=== PATIENT | female | born 1995 | race American Indian/Alaskan Native ===

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

== ENCOUNTER 2017-02-13 15:41 | Emergency (ER) | payer OTHER ==
[2017-02-13 16:27] LABS: Basophils % (Auto) 0.5 % (0.0-1.8); Eosinophils % (Auto) 1.1 % (0.0-4.3); Hematocrit 34.2 % (30.3-42.9); Hemoglobin 11.1 gm/dl (10.1-14.3); Mean Corpuscular HGB Conc 33 % (30-34); Mean Corpuscular Hemoglobin 28 pg (28-32); Mean Corpuscular Volume 87 fl (79-97); Platelet Count 257 K/mm3 (140-440); Red Blood Count 3.93 M/mm3 (3.65-5.03); Red Cell Distribution Width 14.4 % (13.2-15.2); White Blood Count 4.2 K/mm3 (4.5-11.0)
[2017-02-13] MEDS ORDERED: ZOFRAN ODT PO ONE (21:17)
[2017-02-13] MEDS ORDERED: TORADOL IM ONE (21:17)
[2017-02-13] MEDS ORDERED: NORCO 5/325 PO ONE (21:17)
--- NOTE | 2017-02-13 22:11 | Emergency Department Report ---
ED Female HPI - General Chief complaint: Vaginal Bleeding Stated complaint: BLEEDING HEAVY X 1 DAY Time Seen by Provider: 02/13/17 21:10 Source: patient Mode of arrival: Ambulatory Limitations: No Limitations - History of Present Illness Initial comments: 21-year-old female with a past medical history of anxiety presents to the hospital complaining of persistent bleeding for the last 2 days. Patient started her menstrual cycle his 17th visit is the right time ever, bleeding is heavier than normal. Patient using 10 pads in a 24-hour period patient complains of 4/testing. Suprapubic abdominal pressure radiating to the back that is worse with palpation. She is taking ibuprofen with minimal relief. Dysuria 2 days reported without fever. Patient is sexually active with one partner and intermittent condom use. Patient has appointment with her [facility] doctor on the to initiate control. - Related Data Previous Rx's Medication Instructions Recorded Last Taken Type Ibuprofen [Motrin 800 MG tab] 800 mg PO Q8HR PRN #20 tablet 12/18/16 02/11/17 Rx Naproxen [Naprosyn TAB] 500 mg PO BID #30 tablet 02/13/17 Unknown Rx medroxyPROGESTERone ACETATE 10 mg PO QDAY #10 tablet 02/13/17 Unknown Rx [Provera] traMADol [Ultram 50 MG tab] 50 mg PO Q6HR PRN #20 tablet 02/13/17 Unknown Rx Allergies Allergy/AdvReac Type Severity Reaction Status Date / Time amoxicillin Allergy Hives Verified 12/18/16 13:15 cephalexin Allergy Rash Verified 05/14/16 15:59 ED Review of Systems ROS: Stated complaint: BLEEDING HEAVY X 1 DAY Other details as noted in HPI Comment: All other systems reviewed and negative Other: Constitutional: No fevers chills Eyes: No eye pain visual changes ENT: No ear pain or throat pain Neck: Denies pain Respiratory: Denies cough wheezing shortness of breath Cardiovascular: Denies chest pain, palpitations, syncope GI: as per hpi : as per hpi Musculoskeletal: Denies back pain, joint swelling Skin: Denies rash, lesions, erythema Neurologic: Denies headache, numbness, weakness Psychiatric: Denies suicidal ideation, hallucinations ED Past Medical Hx - Past Medical History Previous Medical History?: Yes Hx Psychiatric Treatment: Yes (Anxiety) Additional medical history: anxiety - Surgical History Past Surgical History?: No - Social History Smoking Status: Never Smoker Substance Use Type: Non Opiate Pain - Medications Home Medications: Home Medications Medication Instructions Recorded Confirmed Last Taken Type Ibuprofen [Motrin 800 MG tab] 800 mg PO Q8HR PRN #20 tablet 12/18/16 02/13/17 Rx Naproxen [Naprosyn TAB] 500 mg PO BID #30 tablet 02/13/17 Unknown Rx medroxyPROGESTERone ACETATE 10 mg PO QDAY #10 tablet 02/13/17 Unknown Rx [Provera] traMADol [Ultram 50 MG tab] 50 mg PO Q6HR PRN #20 tablet 02/13/17 Unknown Rx ED Physical Exam - General Limitations: No Limitations - Other Other exam information: General: No limitations, patient is alert in no acute distress Head exam: Atraumatic, normocephalic Eyes exam: Normal appearance, pupils equal reactive to light, extraocular movements intact ENT: Moist mucous membrane, normal oropharynx Neck exam: Normal inspection, full range of motion, no meningismus nontender Respiratory exam: Clear to auscultation bilateral, no wheezes, rales, crackles Cardiovascular: Normal rate and rhythm, normal heart sounds Abdomen: Soft, nondistended, superpubic tenderness, with normal bowel sounds, no rebound, or guarding : Matter blood in the vault significant hemorrhage. No CMT or adnexal tenderness Extremity: Full range of motion normal inspection no deformity Back: Normal Inspection, full range of motion, no tenderness Neurologic: Alert, oriented x3, cranial nerves intact, no motor or sensory deficit Psychiatric: normal affect, normal mood Skin: Warm, dry, intactm ED Course Vital Signs 02/13/17 15:52 Temperature 98.4 F Pulse Rate 84 Respiratory 20 Rate Blood Pressure 137/89 O2 Sat by Pulse 100 Oximetry - Reevaluation(s) Reevaluation #1: 02/13/17 22:12 Patient treated with Toradol and [place] ED Medical Decision Making - Lab Data Result diagrams: 02/13/17 16:10 Lab Results 02/13/17 02/13/17 02/13/17 Range/Units 16:10 16:10 16:10 WBC 4.2 L (4.5-11.0) K/mm3 RBC 3.93 (3.65-5.03) M/mm3 Hgb 11.1 (10.1-14.3) gm/dl Hct 34.2 (30.3-42.9) % MCV 87 (79-97) fl MCH 28 (28-32) pg MCHC 33 (30-34) % RDW 14.4 (13.2-15.2) % Plt Count 257 (140-440) K/mm3 Lymph % (Auto) 32.1 (13.4-35.0) % [place] % (Auto) 7.2 (0.0-7.3) % Eos % (Auto) 1.1 (0.0-4.3) % Baso % (Auto) 0.5 (0.0-1.8) % Lymph # 1.4 (1.2-5.4) K/mm3 [place] # 0.3 (0.0-0.8) K/mm3 Eos # 0.0 (0.0-0.4) K/mm3 Baso # 0.0 (0.0-0.1) K/mm3 Seg Neutrophils % 59.1 (40.0-70.0) % Seg Neutrophils # 2.5 (1.8-7.7) K/mm3 HCG, Quant < 2 (0-4) mIU/mL Blood Type O POSITIVE Antibody Screen TNR MAYE Antibody Screen Negative wet prep neg, gc/chl pending - Radiology Data Radiology results: report reviewed (transvaginal/pelvic ultrasound: No acute abnormality in the uterus or ovaries) - Medical Decision Making Patient has not had any any lab abnormality and has a normal H&H. No signs of . Vital signs stable. Pain controlled in ED with Toradol. Ultrasound normal. Patient discharged from the follow-up with [facility]. Provera for 10 days will be prescribed to help with heavy bleeding. Copy of ultrasound will be provided for outpatient follow-up - Differential Diagnosis , miscarriage, anemia, menorrhagia, fibroids, ovarian cyst Critical Care Time: No Critical care attestation.: If time is entered above; I have spent that time in minutes in the direct care of this critically ill patient, excluding procedure time. ED Disposition Clinical Impression: Menorrhagia, Dysmenorrhea Disposition: DISCHARGED TO HOME OR SELFCARE Is pt being admited?: No Does the pt Need Aspirin: No Condition: Stable Instructions: Menorrhagia (ED) Additional Instructions: Take the medication as prescribed. Follow-up with the [facility] doctor. Return if symptoms worsen. Your gonorrhea and chlamydia tests are pending and take approximately 3-4 days result. You may obtain results in medical records with a photo ID. You may also obtain results through the follow-up doctor office via medical record request. Prescriptions: medroxyPROGESTERone ACETATE [Provera] 10 mg PO QDAY #10 tablet Naproxen [Naprosyn TAB] 500 mg PO BID #30 tablet traMADol [Ultram 50 MG tab] 50 mg PO Q6HR PRN #20 tablet PRN Reason: Pain Referrals: [facility] [Provider Group] - 3-5 Days your, occupational rehabilitation aide doctor [Other] - 3-5 Days Time of Disposition: 23:17
[2017-02-13 22:56] LABS: Bilirubin,Urine NEG (Negative); Blood,Urine LG (Negative); Ketones,Urine NEG (Negative); Leukocyte Esterase,Urine NEG (Negative); Mucus,Urine FEW /HPF; Nitrite,Urine NEG (Negative); Urobilinogen,Urine < 2.0 mg/dL (<2.0)
--- NOTE | 2017-02-13 22:59 | Ultrasound Report ---
FINAL REPORT EXAM: US PELVIC COMPLETE HISTORY: vaginal bleeding pelvic pain TECHNIQUE: Transabdominal pelvic ultrasound was performed in multiple grayscale sonographic images were obtained of uterus and adnexa PRIORS: Endovaginal ultrasound from 02/13/2017 FINDINGS: The uterus measures approximately 6.5 x 3.5 x 3.8 centimeters. The endometrial stripe is measured at 3 millimeters. Left ovary is measured at 3.1 x 2.3 x 2.7 centimeters. Right ovary was not measured. Multiple follicles are noted in the ovaries. IMPRESSION: 1. No gross abnormality is identified in the uterus or adnexa. 2. Please refer to dictation from endovaginal ultrasound from 02/13/2017 for additional information.
--- NOTE | 2017-02-13 23:01 | Ultrasound Report ---
FINAL REPORT EXAM: US TRANSVAGINAL HISTORY: vaginal bleeding pelvic pain TECHNIQUE: Endovaginal ultrasound was performed in multiple grayscale sonographic images were obtained of the uterus and adnexa. PRIORS: Transabdominal pelvic ultrasound from 02/13/2017 FINDINGS: Uterus measures approximately 7.6 x 3.5 centimeters with endometrial stripe thickness of 7.4 millimeters. No free fluid is seen in the images provided. Right ovary measures approximately 3.5 x 1.7 x 3.2 centimeters. Follicles are noted. Left ovary measures approximately 3.1 x 2.3 x 2.5 centimeters. Follicles are noted. IMPRESSION: 1. No gross abnormality is identified in the uterus or ovaries.
[2017-02-13 23:47] VITALS: BP 134/82
== END 2017-02-13 23:25 | disposition home or self-care (01) ==
LOC: ED 15:41
DX: N92.0 Excessive and frequent menstruation with regular cycle (principal); N94.6 Dysmenorrhea, unspecified; F41.9 Anxiety disorder, unspecified; Z88.1 Allergy status to other antibiotic agents
CPT/HCPCS: 36415; 76830; 76856; 81001; 84702; 85025; 86850; 86900; 86901; 87210; 87591; 96372; 99284; J1885; Q0162

== ENCOUNTER 2017-03-01 00:10 | Emergency (ER) | payer SELFPAY ==
[2017-03-01 01:25] LABS: Basophils % (Auto) 0.4 % (0.0-1.8); Eosinophils % (Auto) 1.1 % (0.0-4.3); Hematocrit 33.4 % (30.3-42.9); Hemoglobin 10.9 gm/dl (10.1-14.3); Mean Corpuscular HGB Conc 33 % (30-34); Mean Corpuscular Hemoglobin 29 pg (28-32); Mean Corpuscular Volume 88 fl (79-97); Platelet Count 315 K/mm3 (140-440); Red Blood Count 3.81 M/mm3 (3.65-5.03); Red Cell Distribution Width 14.7 % (13.2-15.2); White Blood Count 5.5 K/mm3 (4.5-11.0)
[2017-03-01 01:36] LABS: Bilirubin,Urine NEG (Negative); Blood,Urine SM (Negative); Ketones,Urine NEG (Negative); Leukocyte Esterase,Urine NEG (Negative); Nitrite,Urine NEG (Negative); Protein,Urine <15 mg/dL mg/dL (Negative); Urobilinogen,Urine < 2.0 mg/dL (<2.0)
--- NOTE | 2017-03-01 02:35 | Emergency Department Report ---
ED Female HPI - General Chief complaint: Vaginal Bleeding Stated complaint: VAG BLEEDING 18 DAYS Time Seen by Provider: 03/01/17 02:26 Source: patient, RN notes reviewed Mode of arrival: Ambulatory Limitations: No Limitations - History of Present Illness Initial comments: This is a 21-year-old female. She is previously unknown to me. She has a follow-up appointment with [facility] this Friday. The patient denies chronic medical conditions. She presents to the ER complaining of cramping and vaginal bleeding for 18 days. She is using a few pads per day. She came today because she "doesn't want to deal with it anymore." Has no headache, neck pain, chest pain, shortness of breath, irritative or obstructive urinary symptoms. The emergency room, the patient had a benign physical examination, was found to not be , had a stable hemoglobin and hematocrit, and was not . Vital signs were appropriate, and the patient was observed without decompensation. The patient was encouraged to follow up with her outpatient OB/ [facility] doctor next week. Does not require transfusion, given the benign physical exam, does not require emergent imaging. MD Complaint: vaginal bleeding -: Gradual, days(s) Quality: cramping Consistency: intermittent Improves with: none Worsens with: none Associated Symptoms: vaginal bleeding. denies: vaginal discharge, nausea/ vomiting, dysuria - Related Data Sexually active: Yes Previous Rx's Medication Instructions Recorded Last Taken Type Ibuprofen [Motrin 800 MG tab] 800 mg PO Q8HR PRN #20 tablet 12/18/16 02/11/17 Rx Naproxen [Naprosyn TAB] 500 mg PO BID #30 tablet 02/13/17 Unknown Rx medroxyPROGESTERone ACETATE 10 mg PO QDAY #10 tablet 02/13/17 Unknown Rx [Provera] traMADol [Ultram 50 MG tab] 50 mg PO Q6HR PRN #20 tablet 02/13/17 Unknown Rx Allergies Allergy/AdvReac Type Severity Reaction Status Date / Time amoxicillin Allergy Hives Verified 12/18/16 13:15 cephalexin Allergy Rash Verified 05/14/16 15:59 ED Review of Systems ROS: Stated complaint: VAG BLEEDING 18 DAYS Other details as noted in HPI Constitutional: denies: fever Eyes: denies: vision change ENT: denies: epistaxis Respiratory: denies: cough Cardiovascular: denies: chest pain Gastrointestinal: denies: vomiting Genitourinary: abnormal menses. denies: dysuria Musculoskeletal: denies: back pain Skin: denies: lesions Neurological: denies: weakness Psychiatric: denies: anxiety ED Past Medical Hx - Past Medical History Previous Medical History?: Yes Hx Psychiatric Treatment: Yes (Anxiety) Additional medical history: anxiety - Surgical History Past Surgical History?: No - Social History Smoking Status: Never Smoker Substance Use Type: None - Medications Home Medications: Home Medications Medication Instructions Recorded Confirmed Last Taken Type Ibuprofen [Motrin 800 MG tab] 800 mg PO Q8HR PRN #20 tablet 12/18/16 02/13/17 Rx Naproxen [Naprosyn TAB] 500 mg PO BID #30 tablet 02/13/17 Unknown Rx medroxyPROGESTERone ACETATE 10 mg PO QDAY #10 tablet 02/13/17 Unknown Rx [Provera] traMADol [Ultram 50 MG tab] 50 mg PO Q6HR PRN #20 tablet 02/13/17 Unknown Rx ED Physical Exam - General Limitations: No Limitations General appearance: alert, in no apparent distress - Head Head exam: Present: atraumatic, normocephalic - Eye Eye exam: Present: normal appearance, EOMI - ENT ENT exam: Present: normal exam, normal orophraynx, mucous membranes moist, normal external ear exam - Neck Neck exam: Present: normal inspection, full ROM. Absent: tenderness, meningismus - Respiratory Respiratory exam: Present: normal lung sounds bilaterally. Absent: respiratory distress, wheezes, rales, rhonchi, stridor, chest wall tenderness - Cardiovascular Cardiovascular Exam: Present: regular rate, normal rhythm, normal heart sounds. Absent: bradycardia, tachycardia, irregular rhythm, systolic murmur, diastolic murmur, rubs, gallop - GI/Abdominal GI/Abdominal exam: Present: soft, normal bowel sounds. Absent: distended, tenderness, guarding, rebound, rigid, pulsatile mass - External exam: Present: normal external exam Speculum exam: Present: normal speculum exam, vaginal bleeding Bi-manual exam: Present: normal bi-manual exam, other (escorted by CAROLINA Murray). Absent: cervical motion tendernes, adnexal tenderness, adnexal mass - Extremities Exam Extremities exam: Present: normal inspection, full ROM, normal capillary refill. Absent: tenderness, pedal edema, joint swelling, calf tenderness - Back Exam Back exam: Present: normal inspection, full ROM. Absent: tenderness, CVA tenderness (R), CVA tenderness (L), muscle spasm, paraspinal tenderness, vertebral tenderness - Neurological Exam Neurological exam: Present: alert, oriented X3, normal gait, other (Extraocular movements intact. Tongue midline. No facial droop. Facial sensation intact to light touch in the V1, V2, V3 distribution bilaterally. 5 and 5 strength in 4 extremities.. Sensation is intact to light touch in 4 extremities.). Absent : motor sensory deficit - Psychiatric Psychiatric exam: Present: normal affect, normal mood - Skin Skin exam: Present: warm, dry, intact, normal color. Absent: rash ED Course Vital Signs 03/01/17 03/01/17 03/01/17 00:24 02:43 03:00 Temperature 98.3 F Pulse Rate 72 69 67 Respiratory 16 10 L 19 Rate Blood Pressure 140/83 133/87 126/87 O2 Sat by Pulse 100 93 100 Oximetry 03/01/17 03/01/17 03/01/17 03:29 04:00 05:00 Temperature Pulse Rate 76 76 Respiratory 16 18 11 L Rate Blood Pressure 120/63 132/96 O2 Sat by Pulse 99 100 100 Oximetry ED Medical Decision Making - Lab Data Result diagrams: 03/01/17 00:51 Vital Signs 03/01/17 03/01/17 03/01/17 00:24 02:43 03:00 Temperature 98.3 F Pulse Rate 72 69 67 Respiratory 16 10 L 19 Rate Blood Pressure 140/83 133/87 126/87 O2 Sat by Pulse 100 93 100 Oximetry 03/01/17 03/01/17 03/01/17 03:29 04:00 05:00 Temperature Pulse Rate 76 76 Respiratory 16 18 11 L Rate Blood Pressure 120/63 132/96 O2 Sat by Pulse 99 100 100 Oximetry Lab Results 03/01/17 03/01/17 03/01/17 Range/Units 00:46 00:51 00:51 WBC 5.5 (4.5-11.0) K/mm3 RBC 3.81 (3.65-5.03) M/mm3 Hgb 10.9 (10.1-14.3) gm/dl Hct 33.4 (30.3-42.9) % MCV 88 (79-97) fl MCH 29 (28-32) pg MCHC 33 (30-34) % RDW 14.7 (13.2-15.2) % Plt Count 315 (140-440) K/mm3 Lymph % (Auto) 40.4 H (13.4-35.0) % [place] % (Auto) 6.9 (0.0-7.3) % Eos % (Auto) 1.1 (0.0-4.3) % Baso % (Auto) 0.4 (0.0-1.8) % Lymph # 2.2 (1.2-5.4) K/mm3 [place] # 0.4 (0.0-0.8) K/mm3 Eos # 0.1 (0.0-0.4) K/mm3 Baso # 0.0 (0.0-0.1) K/mm3 Seg Neutrophils % 51.2 (40.0-70.0) % Seg Neutrophils # 2.8 (1.8-7.7) K/mm3 HCG, Quant < 2 (0-4) mIU/mL Urine Color Yellow (Yellow) Urine Turbidity Clear (Clear) Urine pH 7.0 (5.0-7.0) Ur Specific [place] 1.020 (1.003-1.030) Urine Protein <15 mg/dl (Negative) mg/dL Urine Glucose (UA) Neg (Negative) mg/dL Urine Ketones Neg (Negative) mg/dL Urine Blood Sm (Negative) Urine Nitrite Neg (Negative) Urine Bilirubin Neg (Negative) Urine Urobilinogen < 2.0 (<2.0) mg/dL Ur Leukocyte Esterase Neg (Negative) Urine WBC (Auto) 1.0 (0.0-6.0) /HPF Urine RBC (Auto) 4.0 (0.0-6.0) /HPF U Epithel Cells (Auto) 1.0 (0-13.0) /HPF Blood Type Antibody Screen MAYE Antibody Screen 03/01/17 Range/Units 00:51 WBC (4.5-11.0) K/mm3 RBC (3.65-5.03) M/mm3 Hgb (10.1-14.3) gm/dl Hct (30.3-42.9) % MCV (79-97) fl MCH (28-32) pg MCHC (30-34) % RDW (13.2-15.2) % Plt Count (140-440) K/mm3 Lymph % (Auto) (13.4-35.0) % [place] % (Auto) (0.0-7.3) % Eos % (Auto) (0.0-4.3) % Baso % (Auto) (0.0-1.8) % Lymph # (1.2-5.4) K/mm3 [place] # (0.0-0.8) K/mm3 Eos # (0.0-0.4) K/mm3 Baso # (0.0-0.1) K/mm3 Seg Neutrophils % (40.0-70.0) % Seg Neutrophils # (1.8-7.7) K/mm3 HCG, Quant (0-4) mIU/mL Urine Color (Yellow) Urine Turbidity (Clear) Urine pH (5.0-7.0) Ur Specific [place] (1.003-1.030) Urine Protein (Negative) mg/dL Urine Glucose (UA) (Negative) mg/dL Urine Ketones (Negative) mg/dL Urine Blood (Negative) Urine Nitrite (Negative) Urine Bilirubin (Negative) Urine Urobilinogen (<2.0) mg/dL Ur Leukocyte Esterase (Negative) Urine WBC (Auto) (0.0-6.0) /HPF Urine RBC (Auto) (0.0-6.0) /HPF U Epithel Cells (Auto) (0-13.0) /HPF Blood Type O POSITIVE Antibody Screen TNR MAYE Antibody Screen Negative - Medical Decision Making Differential diagnosis: Dysmenorrhea, dysfunctional vaginal bleeding, Critical care attestation.: If time is entered above; I have spent that time in minutes in the direct care of this critically ill patient, excluding procedure time. ED Disposition Clinical Impression: Vaginal bleeding Disposition: DISCHARGED TO HOME OR SELFCARE Is pt being admited?: No Does the pt Need Aspirin: No Condition: Stable Instructions: Dysfunctional Uterine Bleeding (ED) Additional Instructions: Cultures were sent today. Results will be available in the next 3-5 days. Have your private [facility] doctor contact the medical records department to obtain culture results. Follow up with [facility] next week as scheduled. Return to the ER right away with bleeding more than 2 pads soaked through and through per hour, dizziness, lightheadedness, chest pain, shortness of breath, intractable nausea or vomiting, inability to tolerate liquid feeds. Referrals: PRIMARY CARE, [Primary Care Provider] - 3-5 Days [facility] [Provider Group] - 3-5 Days
[2017-03-01 05:17] VITALS: BP 132/96
== END 2017-03-01 05:45 | disposition home or self-care (01) ==
LOC: ED 00:10
DX: N93.8 Other specified abnormal uterine and vaginal bleeding (principal); F41.9 Anxiety disorder, unspecified; Z88.1 Allergy status to other antibiotic agents
CPT/HCPCS: 36415; 81001; 84702; 85025; 86850; 86900; 86901; 87210; 87591; 99284

== ENCOUNTER 2017-03-31 15:32 | Emergency (ER) | payer SELFPAY ==
--- NOTE | 2017-03-31 15:59 | Emergency Department Report ---
Chief Complaint: Vaginal Bleeding Stated Complaint: CONSISTANT VAG BLEEDING/ 2 MONTHS Time Seen by Provider: 03/31/17 16:00 - HPI History of Present Illness: seen here and by specialist got rafael continues to bleed "like n period" no pain no anemia per pt. denies std or preg concern. labs ordered - Exam Vital Signs: Vital Signs 03/31/17 15:51 Temperature 99.1 F Pulse Rate 59 L Respiratory 18 Rate Blood Pressure 144/99 O2 Sat by Pulse 100 Oximetry MSE screening note: Focused history and physical exam performed. Due to findings the following was ordered: ED Disposition for MSE Condition: Stable
[2017-03-31 16:28] LABS: Basophils % (Auto) 0.5 % (0.0-1.8); Eosinophils % (Auto) 0.7 % (0.0-4.3); Hematocrit 36.8 % (30.3-42.9); Mean Corpuscular HGB Conc 33 % (30-34); Mean Corpuscular Hemoglobin 28 pg (28-32); Mean Corpuscular Volume 87 fl (79-97); Platelet Count 286 K/mm3 (140-440); Red Blood Count 4.24 M/mm3 (3.65-5.03); Red Cell Distribution Width 14.1 % (13.2-15.2); White Blood Count 4.9 K/mm3 (4.5-11.0)
[2017-03-31 16:34] LABS: Anion Gap 20 mmol/L; BUN/Creatinine Ratio 16.25; Blood Urea Nitrogen 13 mg/dL (7-17); Calcium 9.3 mg/dL (8.4-10.2); Carbon Dioxide 20 mmol/L (22-30); Chloride 106.3 mmol/L (98-107); Glucose 88 mg/dL (65-100); Potassium 4.3 mmol/L (3.6-5.0); Sodium 142 mmol/L (137-145)
[2017-03-31 16:37] LABS: INR 1.05 (0.87-1.13)
[2017-03-31 16:38] LABS: Partial Thromboplastin Time 32.5 Sec. (24.2-36.6)
--- NOTE | 2017-03-31 22:21 | Emergency Department Report ---
ED Female HPI - General Chief complaint: Vaginal Bleeding Stated complaint: CONSISTANT VAG BLEEDING/ 2 MONTHS Time Seen by Provider: 03/31/17 22:11 Source: patient Mode of arrival: Ambulatory Limitations: No Limitations - History of Present Illness Initial comments: PATIENT STATED THAT SHE HAS VAGINAL BLEEDING FOR MORE THAN TWO MONTHS. SHE WAS SEEN HERE FEW WEEKS AGO ULTRASOUND WAS NEGATIVE, FOLLOWED BY HER INFRASTRUCTURE TECHNICIAN WHO GAVE HER A DEPO SHOT WHICH IT DIDN'T HELP. MD Complaint: vaginal bleeding, pelvic pain -: month(s) (TWO MONTH) Severity: mild Quality: cramping Associated Symptoms: denies other symptoms - Related Data Previous Rx's Medication Instructions Recorded Last Taken Type Ibuprofen [Motrin 800 MG tab] 800 mg PO Q8HR PRN #20 tablet 12/18/16 02/11/17 Rx Naproxen [Naprosyn TAB] 500 mg PO BID #30 tablet 02/13/17 Unknown Rx medroxyPROGESTERone ACETATE 10 mg PO QDAY #10 tablet 02/13/17 Unknown Rx [Provera] traMADol [Ultram 50 MG tab] 50 mg PO Q6HR PRN #20 tablet 02/13/17 Unknown Rx medroxyPROGESTERone ACETATE 10 mg PO QDAY #10 tablet 03/31/17 Unknown Rx [Provera] Allergies Allergy/AdvReac Type Severity Reaction Status Date / Time amoxicillin Allergy Hives Verified 12/18/16 13:15 cephalexin Allergy Rash Verified 05/14/16 15:59 ED Review of Systems ROS: Stated complaint: CONSISTANT VAG BLEEDING/ 2 MONTHS Other details as noted in HPI Comment: All other systems reviewed and negative ED Past Medical Hx - Past Medical History Previous Medical History?: Yes Hx Psychiatric Treatment: Yes (Anxiety) Additional medical history: anxiety, Abnormal vaginal bleeding - Surgical History Past Surgical History?: No - Social History Smoking Status: Never Smoker Substance Use Type: Alcohol, Marijuana - Medications Home Medications: Home Medications Medication Instructions Recorded Confirmed Last Taken Type Ibuprofen [Motrin 800 MG tab] 800 mg PO Q8HR PRN #20 tablet 12/18/16 02/13/17 Rx Naproxen [Naprosyn TAB] 500 mg PO BID #30 tablet 02/13/17 Unknown Rx medroxyPROGESTERone ACETATE 10 mg PO QDAY #10 tablet 02/13/17 Unknown Rx [Provera] traMADol [Ultram 50 MG tab] 50 mg PO Q6HR PRN #20 tablet 02/13/17 Unknown Rx medroxyPROGESTERone ACETATE 10 mg PO QDAY #10 tablet 03/31/17 Unknown Rx [Provera] ED Physical Exam - General Limitations: No Limitations General appearance: alert, in no apparent distress - Eye Eye exam: Present: normal appearance. Absent: scleral icterus - Respiratory Respiratory exam: Present: normal lung sounds bilaterally - Cardiovascular Cardiovascular Exam: Present: regular rate - GI/Abdominal GI/Abdominal exam: Present: soft. Absent: distended, tenderness, guarding, rebound ED Course Vital Signs 03/31/17 15:51 Temperature 99.1 F Pulse Rate 59 L Respiratory 18 Rate Blood Pressure 144/99 O2 Sat by Pulse 100 Oximetry ED Medical Decision Making - Lab Data Result diagrams: 03/31/17 16:03 03/31/17 16:03 - Medical Decision Making IT LOOK LIKE A DYSFUNCTIONAL UTERINE BLEEDING, I WILL START HER ON PROVERA AND SHE WILL F/U WITH HER INFRASTRUCTURE TECHNICIAN NEXT WEEK Critical care attestation.: If time is entered above; I have spent that time in minutes in the direct care of this critically ill patient, excluding procedure time. ED Disposition Clinical Impression: Vaginal bleeding, abnormal Disposition: DC-01 TO HOME OR SELFCARE Is pt being admited?: No Does the pt Need Aspirin: No Condition: Stable Instructions: Dysfunctional Uterine Bleeding (ED) Prescriptions: medroxyPROGESTERone ACETATE [Provera] 10 mg PO QDAY #10 tablet Referrals: PRIMARY CARE, [Primary Care Provider] - 3-5 Days
[2017-04-01 00:15] VITALS: BP 138/86
== END 2017-03-31 22:47 | disposition home or self-care (01) ==
LOC: ED 15:32
DX: N93.9 Abnormal uterine and vaginal bleeding, unspecified (principal); F41.9 Anxiety disorder, unspecified; F12.10 Cannabis abuse, uncomplicated; Z88.1 Allergy status to other antibiotic agents
CPT/HCPCS: 36415; 80048; 84702; 85025; 85610; 85730; 99283

== ENCOUNTER 2017-05-26 14:14 | Emergency (ER) | payer OTHER ==
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
[2017-05-26 14:41] VITALS: BP 142/87
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
[2017-05-26] MEDS ORDERED: MOTRIN PO ONE (15:43)
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
== END 2017-05-26 16:04 | disposition home or self-care (01) ==
LOC: ED 14:14
DX: R51 Headache (principal); M25.562 Pain in left knee; F41.9 Anxiety disorder, unspecified; Z88.1 Allergy status to other antibiotic agents; V87.7XXA Person injured in collision between other specified motor vehicles (traffic), initial encounter; Y93.89 Activity, other specified; Y99.9 Unspecified external cause status; Y92.410 Unspecified street and highway as the place of occurrence of the external cause

== ENCOUNTER 2017-12-29 14:38 | Emergency (ER) | payer OTHER ==
[2017-12-29 15:34] VITALS: BP 143/92
--- NOTE | 2017-12-29 19:29 | Emergency Department Report ---
ED GI Bleed HPI - General Chief complaint: GI Bleed Stated complaint: RECTAL BLEEDING Source: patient Mode of arrival: Ambulatory Limitations: No Limitations - History of Present Illness Initial comments: Patient is a 22-year-old female who is presenting with bleeding per stool. Patient states this morning she has bright red blood per stool patient has some very mild abdominal cramping during this bowel movement. Patient says she's had 1 additional bowel movement that states the blood was much less. Patient denies any rectal trauma nausea vomiting fevers chills at this time. - Related Data Previous Rx's Medication Instructions Recorded Last Taken Type Ibuprofen [Motrin 800 MG tab] 800 mg PO Q8HR PRN #20 tablet 12/18/16 02/11/17 Rx Naproxen [Naprosyn TAB] 500 mg PO BID #30 tablet 02/13/17 Unknown Rx medroxyPROGESTERone ACETATE 10 mg PO QDAY #10 tablet 02/13/17 Unknown Rx [Provera] traMADol [Ultram 50 MG tab] 50 mg PO Q6HR PRN #20 tablet 02/13/17 Unknown Rx medroxyPROGESTERone ACETATE 10 mg PO QDAY #10 tablet 03/31/17 Unknown Rx [Provera] Ibuprofen [Motrin 800 MG tab] 800 mg PO ONCE #30 tablet 05/26/17 Unknown Rx Hydrocortisone [Anusol-Hc] 30 gm RC BID 7 Days cream..g. 12/29/17 Unknown Rx Allergies Allergy/AdvReac Type Severity Reaction Status Date / Time amoxicillin Allergy Hives Verified 12/18/16 13:15 cephalexin Allergy Rash Verified 05/14/16 15:59 ED Review of Systems ROS: Stated complaint: RECTAL BLEEDING Other details as noted in HPI Comment: All other systems reviewed and negative ED Past Medical Hx - Past Medical History Previous Medical History?: No Hx Psychiatric Treatment: Yes (Anxiety) Additional medical history: anxiety, Abnormal vaginal bleeding - Social History Smoking Status: Unknown if ever smoked Substance Use Type: None - Medications Home Medications: Home Medications Medication Instructions Recorded Confirmed Last Taken Type Ibuprofen [Motrin 800 MG tab] 800 mg PO Q8HR PRN #20 tablet 12/18/16 02/13/17 Rx Naproxen [Naprosyn TAB] 500 mg PO BID #30 tablet 02/13/17 Unknown Rx medroxyPROGESTERone ACETATE 10 mg PO QDAY #10 tablet 02/13/17 Unknown Rx [Provera] traMADol [Ultram 50 MG tab] 50 mg PO Q6HR PRN #20 tablet 02/13/17 Unknown Rx medroxyPROGESTERone ACETATE 10 mg PO QDAY #10 tablet 03/31/17 Unknown Rx [Provera] Ibuprofen [Motrin 800 MG tab] 800 mg PO ONCE #30 tablet 05/26/17 Unknown Rx Hydrocortisone [Anusol-Hc] 30 gm RC BID 7 Days cream..g. 12/29/17 Unknown Rx ED Physical Exam - General Limitations: No Limitations General appearance: alert, in no apparent distress - Head Head exam: Present: atraumatic, normocephalic - Eye Eye exam: Present: normal appearance - ENT ENT exam: Present: mucous membranes moist - Neck Neck exam: Present: normal inspection - Respiratory Respiratory exam: Present: normal lung sounds bilaterally. Absent: respiratory distress, wheezes, rales, rhonchi - Cardiovascular Cardiovascular Exam: Present: regular rate, normal rhythm. Absent: systolic murmur, diastolic murmur, rubs, gallop - GI/Abdominal GI/Abdominal exam: Present: soft, normal bowel sounds. Absent: distended, tenderness, guarding, rebound, rigid - Rectal Rectal exam: Present: hemorrhoids (there is a small hemorrhoid just at the anal opening. This hemorrhoid is nonthrombosed) - Extremities Exam Extremities exam: Present: normal inspection - Back Exam Back exam: Present: normal inspection - Neurological Exam Neurological exam: Present: alert, oriented X3 - Psychiatric Psychiatric exam: Present: normal affect, normal mood - Skin Skin exam: Present: warm, dry, intact, normal color. Absent: rash ED Course Vital Signs 12/29/17 15:32 Temperature 98.8 F Pulse Rate 78 Respiratory 18 Rate Blood Pressure 143/92 O2 Sat by Pulse 98 Oximetry Critical care attestation.: If time is entered above; I have spent that time in minutes in the direct care of this critically ill patient, excluding procedure time. ED Disposition Clinical Impression: Hemorrhoid Qualifiers: Hemorrhoid type: second degree Qualified Code(s): K64.1 - Second degree hemorrhoids Disposition: - TO HOME OR SELFCARE Is pt being admited?: No Does the pt Need Aspirin: No Condition: Stable Instructions: Hemorrhoids (ED) Prescriptions: Hydrocortisone [Anusol-Hc] 30 gm RC BID 7 Days cream..g. Referrals: TATIANA BEAR MD [Primary Care Provider] - 3-5 Days Forms: Accompanied Note
== END 2017-12-29 19:55 | disposition home or self-care (01) ==
LOC: ED 14:38
DX: K64.1 Second degree hemorrhoids (principal); F41.9 Anxiety disorder, unspecified; Z88.1 Allergy status to other antibiotic agents
CPT/HCPCS: 99282

== ENCOUNTER 2018-05-14 23:15 | Emergency (ER) | payer OTHER | END 2018-05-14 23:20 | disposition left against medical advice (07) | LOC: ED 23:15 | DX: R07.9 Chest pain, unspecified (principal); R51 Headache; H53.8 Other visual disturbances; Z88.1 Allergy status to other antibiotic agents; Z53.21 Procedure and treatment not carried out due to patient leaving prior to being seen by health care provider | CPT/HCPCS: 93005; 93010 ==

== ENCOUNTER 2019-01-11 14:18 | Emergency (ER) | payer OTHER ==
--- NOTE | 2019-01-11 15:28 | Emergency Department Report ---
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
[2019-01-12 19:16] VITALS: BP 134/87
== END 2019-01-11 18:00 | disposition left against medical advice (07) ==
LOC: ED 14:18
DX: M54.9 Dorsalgia, unspecified (principal); Z53.21 Procedure and treatment not carried out due to patient leaving prior to being seen by health care provider

== ENCOUNTER 2019-02-21 12:58 | Emergency (ER) | payer OTHER ==
[2019-02-21 13:07] VITALS: BP 136/88
--- NOTE | 2019-02-21 13:08 | Emergency Department Report ---
Chief Complaint: Back Pain/Injury Stated Complaint: BACK PAIN Time Seen by Provider: 02/21/19 13:04 - HPI History of Present Illness: This is a 23 y.o. F that presents to the ER with acute on chronic low back pain. H chronic back pain Patient seen by Ortho and PT in the past. States can't followup now due to no insurance. Denies recent injury, urinary frequency, urgency, or dysuria. Pain 10/10 on pain scale. - Exam Vital Signs: Vital Signs 02/21/19 13:04 Temperature 97.8 F Pulse Rate 96 H Respiratory 18 Rate Blood Pressure 136/88 O2 Sat by Pulse 100 Oximetry MSE screening note: Focused history and physical exam performed. Due to findings the following was ordered: Urinalysis and hCG. Fast track for further evaluation. ED Disposition for MSE Condition: Stable
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
== END 2019-02-21 14:05 | disposition left against medical advice (07) ==
LOC: ED 12:58
DX: M54.5 Low back pain (principal); G89.29 Other chronic pain; Z88.1 Allergy status to other antibiotic agents
CPT/HCPCS: 99282

== ENCOUNTER 2019-03-31 16:16 | Emergency (ER) | payer OTHER ==
--- NOTE | 2019-03-31 16:20 | Event Note ---
ED Screening Note Date of service: 03/31/19 Time: 16:19 ED Screening Note: 24 y/o female comes in for weakness and right side facial numbness. Sheet Metal Mechanic decreased This initial assessment/diagnostic orders/clinical plan/treatment(s) is/are subject to change based on patients health status, clinical progression and re- assessment by fellow clinical providers in the ED. Further treatment and workup at subsequent clinical providers discretion. Patient/guardian urged not to elope from the ED as their condition may be serious if not clinically assessed and managed. Initial orders include:
[2019-03-31] MEDS ORDERED: TORADOL IV ONE (16:38)
[2019-03-31] MEDS ORDERED: DECADRON IV ONE (16:38)
[2019-03-31] MEDS ORDERED: BABY ASPIRIN PO ONE (16:39)
--- NOTE | 2019-03-31 16:46 | Emergency Department Report ---
ED Neuro Deficit HPI - General Stated Complaint: NEURO ISSUES Time Seen by Provider: 03/31/19 16:29 Source: patient, RN notes reviewed, old records reviewed Mode of arrival: Ambulatory Limitations: No Limitations - History of Present Illness Initial Comments: Miss Beal is a pleasant healthy 24-year-old female who presents with right facial weakness and right afternoon babysitter weakness. Sudden onset 30 minutes prior to arrival. This occurred while grocery shopping. Does not have associated headache. She feels numbness in her right face and right leg. No history of CVA in the family. No history of previous headaches. Positive family history of hypertension. She's had "too much stress at home. She lives alone but she has been depressed. Denies suicidal or homicidal ideation. -: Sudden, minutes(s) (30) Location: right face Presenting Symptoms: Present: Weak/Paralyzed One Side Place: other (grocery store) Severity: mild Quality: weak, numb Improves With: none Worsens With: none On Anticoagulants: No Context: sudden onset Treatments Prior to Arrival: none - Related Data Home Medications: Previous Rx's Medication Instructions Recorded Last Taken Type Ibuprofen [Motrin 800 MG tab] 800 mg PO Q8HR PRN #20 tablet 12/18/16 02/11/17 Rx Naproxen [Naprosyn TAB] 500 mg PO BID #30 tablet 02/13/17 Unknown Rx medroxyPROGESTERone ACETATE 10 mg PO QDAY #10 tablet 02/13/17 Unknown Rx [Provera] traMADol [Ultram 50 MG tab] 50 mg PO Q6HR PRN #20 tablet 02/13/17 Unknown Rx medroxyPROGESTERone ACETATE 10 mg PO QDAY #10 tablet 03/31/17 Unknown Rx [Provera] Ibuprofen [Motrin 800 MG tab] 800 mg PO ONCE #30 tablet 05/26/17 Unknown Rx Hydrocortisone [Anusol-Hc] 30 gm RC BID 7 Days cream..g. 12/29/17 Unknown Rx Pantoprazole [Protonix TAB] 20 mg PO QDAY #30 tablet. 09/08/18 Unknown Rx traMADol [Ultram] 50 mg PO Q6HR PRN #10 tablet 09/08/18 Unknown Rx Allergies/Adverse Reactions: Allergies Allergy/AdvReac Type Severity Reaction Status Date / Time amoxicillin Allergy Hives Verified 01/11/19 14:31 cephalexin Allergy Rash Verified 01/11/19 14:31 ED Review of Systems ROS: Stated complaint: NEURO ISSUES Other details as noted in HPI Comment: All other systems reviewed and negative Constitutional: denies: fever, malaise Respiratory: denies: cough Cardiovascular: denies: chest pain ED Past Medical Hx - Past Medical History Hx Psychiatric Treatment: Yes (Anxiety) Additional medical history: anxiety, Abnormal vaginal bleeding - Social History Smoking Status: Never Smoker Substance Use Type: None - Medications Home Medications: Home Medications Medication Instructions Recorded Confirmed Last Taken Type Ibuprofen [Motrin 800 MG tab] 800 mg PO Q8HR PRN #20 tablet 12/18/16 02/13/17 02/11/17 Rx Naproxen [Naprosyn TAB] 500 mg PO BID #30 tablet 02/13/17 Unknown Rx medroxyPROGESTERone ACETATE 10 mg PO QDAY #10 tablet 02/13/17 Unknown Rx [Provera] traMADol [Ultram 50 MG tab] 50 mg PO Q6HR PRN #20 tablet 02/13/17 Unknown Rx medroxyPROGESTERone ACETATE 10 mg PO QDAY #10 tablet 03/31/17 Unknown Rx [Provera] Ibuprofen [Motrin 800 MG tab] 800 mg PO ONCE #30 tablet 05/26/17 Unknown Rx Hydrocortisone [Anusol-Hc] 30 gm RC BID 7 Days cream..g. 12/29/17 Unknown Rx Pantoprazole [Protonix TAB] 20 mg PO QDAY #30 tablet. 09/08/18 Unknown Rx traMADol [Ultram] 50 mg PO Q6HR PRN #10 tablet 09/08/18 Unknown Rx ED Neuro Physical Exam - General General appearance: alert, in no apparent distress Suspected Stroke: No - Head Head exam: Present: atraumatic, normocephalic - Eye Eye exam: Present: normal appearance - ENT ENT exam: Present: mucous membranes moist - Neck Neck exam: Present: normal inspection, full ROM - Respiratory Respiratory exam: Present: normal lung sounds bilaterally. Absent: respiratory distress, wheezes, rales, rhonchi - Cardiovascular Cardiovascular Exam: Present: regular rate, normal rhythm, normal heart sounds. Absent: systolic murmur, diastolic murmur, rubs, gallop - GI/Abdominal GI/Abdominal exam: Present: soft, normal bowel sounds. Absent: distended, tenderness, guarding, rebound - Extremities Exam Extremities exam: Present: normal inspection - Back Exam Back exam: Present: normal inspection - Neurological Exam Neurological exam: Present: alert, oriented X3 - NIHSS Assessment Interval: 24 hours post onset of symptoms +-20 minutes 1b. LOC Questions: answers both correctly 1c. LOC Commands: performs tasks correctly 2. Best Gaze: forced deviation 3. Visual: no visual loss 4. Facial Palsy: normal symmetrical movement 5b. Motor Arm Right: no drift 5a. Motor Arm Left: no drift 6a. Motor Leg Left: no drift 6b. Motor Leg Right: no drift 7. Limb Ataxia: absent 8. Sensory: mild/moderate sensory loss 9. Best Language: no aphasia 10. Dysarthria: normal 11. Extinction/Inattention: no abnormality - Psychiatric Psychiatric exam: Present: normal affect, normal mood - Skin Skin exam: Present: warm, dry, intact, normal color. Absent: rash ED Course Vital Signs 03/31/19 16:59 Temperature 98.4 F Pulse Rate 101 H Respiratory 16 Rate Blood Pressure 144/92 O2 Sat by Pulse 99 Oximetry - Lab Data Result diagrams: 03/31/19 16:28 03/31/19 16:28 Lab Results 03/31/19 03/31/19 03/31/19 Range/Units 16:26 16:28 16:28 WBC 5.9 (4.5-11.0) K/mm3 RBC 4.25 (3.65-5.03) M/mm3 Hgb 13.2 (10.1-14.3) gm/dl Hct 39.4 (30.3-42.9) % MCV 93 (79-97) fl MCH 31 (28-32) pg MCHC 34 (30-34) % RDW 13.0 L (13.2-15.2) % Plt Count 268 (140-440) K/mm3 Lymph % (Auto) Bone Cooking Operator WBC Morphology PT 13.9 (12.2-14.9) Sec. INR 1.10 (0.87-1.13) APTT 26.3 (24.2-36.6) Sec. Thrombin Time (15.1-19.6) Sec. Sodium (137-145) mmol/L Potassium (3.6-5.0) mmol/L Chloride (98-107) mmol/L Carbon Dioxide (22-30) mmol/L Anion Gap mmol/L BUN (7-17) mg/dL Creatinine (0.7-1.2) mg/dL Estimated GFR ml/min BUN/Creatinine Ratio % Glucose (65-100) mg/dL POC Glucose 119 H (70-105) Calcium (8.4-10.2) mg/dL Troponin T (0.00-0.029) ng/mL 03/31/19 03/31/19 03/31/19 Range/Units 16:28 16:28 16:28 WBC (4.5-11.0) K/mm3 RBC (3.65-5.03) M/mm3 Hgb (10.1-14.3) gm/dl Hct (30.3-42.9) % MCV (79-97) fl MCH (28-32) pg MCHC (30-34) % RDW (13.2-15.2) % Plt Count (140-440) K/mm3 Lymph % (Auto) WBC Morphology TNR PT (12.2-14.9) Sec. INR (0.87-1.13) APTT (24.2-36.6) Sec. Thrombin Time 16.1 (15.1-19.6) Sec. Sodium 142 (137-145) mmol/L Potassium 3.6 (3.6-5.0) mmol/L Chloride 108.5 H (98-107) mmol/L Carbon Dioxide 24 (22-30) mmol/L Anion Gap 13 mmol/L BUN 8 (7-17) mg/dL Creatinine 0.9 (0.7-1.2) mg/dL Estimated GFR > 60 ml/min BUN/Creatinine Ratio 9 % Glucose 102 H (65-100) mg/dL POC Glucose (70-105) Calcium 9.1 (8.4-10.2) mg/dL Troponin T < 0.010 (0.00-0.029) ng/mL - Radiology Data Radiology results: report reviewed CT head NAP according to verbal radiology report - Medical Decision Making Ms. Beal presents with right facial weakness, decreased sensation right face right arm. Differential diagnosis includes TIA CVA, hemiplegia migraine, conversion disorder, Hsieh's palsy. Due to multiple possibilities and possible alternative etiologiess, TPA not indicated. Patient appears to have increased muscle activation on the right side instead of decreased. It appears that she has persistent effort to squint and smile on the right side. She states that she's had a lot of stress at home. Whereas conversion disorder would be possible in this scenario. She received aspirin in the ED. She received ketorolac Decadron treatment for potential hemiplegic migraine. Code stroke was activated. I spoke with radiologist and teleneurologist regarding her care. According to phone conversation with radiologist CT head without acute process. Teleneurologists did not recommend TPA. Mrs. Beal is discharged home. No evidence of acute emergent condition which needs further evaluation. Critical care attestation.: If time is entered above; I have spent that time in minutes in the direct care of this critically ill patient, excluding procedure time. ED Disposition Clinical Impression: Migraine aura without headache Disposition: DC-01 TO HOME OR SELFCARE Is pt being admited?: No Does the pt Need Aspirin: No Condition: Stable Instructions: Migraine Headache (ED) Referrals: [facility] [Outside] - 3-5 Days
--- NOTE | 2019-03-31 16:49 | Cat Scan Report ---
CT head/brain wo con INDICATION: neuro deficits <6hrs of sx present upon awakening. TECHNIQUE: Routine CT head without contrast. All CT scans at this location are performed using CT dos e reduction for ALARA by means of automated exposure control. COMPARISON: None. FINDINGS: BRAIN / INTRACRANIAL CONTENTS: I do not see CT findings to suggest acute territorial infarction. Basa l ganglia are normal. No acute hemorrhage, mass effect, midline shift, hydrocephalus, or acute, large territorial infarct. No chronic infarct or focal atrophy. Normal brain volume and ventricular/sulcal size for age. No significant white matter abnormality. CRANIOCERVICAL JUNCTION: No significant abnormality. ORBITS: No significant abnormality of visualized orbits. SINUSES / MASTOIDS: No significant abnormality of the visualized paranasal sinuses or mastoid air dominique ls. ADDITIONAL FINDINGS: None. IMPRESSION: Normal nonenhanced CT scan of the brain: I do not see findings to suggest hyperacute stroke Karissa harris Findings were discussed with Dr. Turcios at 3:42 PM CDT Signer Name: Becky Mai MD Signed: 03/31/2019 4:44 PM Workstation Name: [id number]
[2019-03-31 16:50] LABS: Hematocrit 39.4 % (30.3-42.9); Hemoglobin 13.2 gm/dl (10.1-14.3); Mean Corpuscular HGB Conc 34 % (30-34); Mean Corpuscular Volume 93 fl (79-97); Platelet Count 268 K/mm3 (140-440); Red Blood Count 4.25 M/mm3 (3.65-5.03)
[2019-03-31 17:00] LABS: INR 1.1 (0.87-1.13)
[2019-03-31 17:01] LABS: Partial Thromboplastin Time 26.3 Sec. (24.2-36.6)
--- NOTE | 2019-03-31 17:03 | Emergency Department Report ---
HPI - General Time Seen by Provider: 03/31/19 16:29 - HPI HPI: [facility] Asked to see this patient in telemedicine consultation. Consultation was performed with assistance of ancillary/medical staff at bedside. Comments: Last Known normal 1530 Door Time: 1618 [facility] Contacted: 1620 [facility] first log in: 1624 NIHSS assessment time: 1634 MD Call back 1637 HPI: 24 yof with no past medical hx presents with spots in her vision and progression to right sided weakness. She states she may have had an intense headache few weeks ago but denies one today. She is denies past hx of stroke or family hx of stroke or blood clots states both parents have hypertension. She is not on asa or ac but takes control medication. She states today whlie helping someone with their shopping she developed spot in her right eye but as that resolved she had weakness on her right side from her shoulder progressing to her hand. Sxs have markedly improved while in ED and ct scan head per radiology report is negative. ED Past Medical Hx - Past Medical History Hx Psychiatric Treatment: Yes (Anxiety) Additional medical history: anxiety, Abnormal vaginal bleeding - Social History Smoking Status: Never Smoker Substance Use Type: None - Medications Home Medications: Home Medications Medication Instructions Recorded Confirmed Last Taken Type Ibuprofen [Motrin 800 MG tab] 800 mg PO Q8HR PRN #20 tablet 12/18/16 02/13/17 02/11/17 Rx Naproxen [Naprosyn TAB] 500 mg PO BID #30 tablet 02/13/17 Unknown Rx medroxyPROGESTERone ACETATE 10 mg PO QDAY #10 tablet 02/13/17 Unknown Rx [Provera] traMADol [Ultram 50 MG tab] 50 mg PO Q6HR PRN #20 tablet 02/13/17 Unknown Rx medroxyPROGESTERone ACETATE 10 mg PO QDAY #10 tablet 03/31/17 Unknown Rx [Provera] Ibuprofen [Motrin 800 MG tab] 800 mg PO ONCE #30 tablet 05/26/17 Unknown Rx Hydrocortisone [Anusol-Hc] 30 gm RC BID 7 Days cream..g. 12/29/17 Unknown Rx Pantoprazole [Protonix TAB] 20 mg PO QDAY #30 tablet. 09/08/18 Unknown Rx traMADol [Ultram] 50 mg PO Q6HR PRN #10 tablet 09/08/18 Unknown Rx ED Review of Systems ROS: Stated complaint: NEURO ISSUES Other details as noted in HPI Constitutional: denies: fever, malaise Respiratory: denies: cough Cardiovascular: denies: chest pain Physical Exam - Physical Exam General: VSS Gen Wn/Wd in Nad TeleStroke Assessment: LOC: 0 LOC questions: 0 LOC Commands : 0 Gaze : 0 Visual pinon : 0 Facial movements : 0 Upper limb Motor 0 but tremor in hand when arms held at 90 degrees for greater than 30 seconds. Lower limb Motor 0 Limb Coordination - 0 Sensory - - 1 R face and leg Language - 0 Speech - 0 Neglect / extinction - 0 NIHSS Score: 1 ED Medical Decision Making - Medical Decision Making IMPRESSION Atypical migraine vs less likely TIA Blood Pressure and Blood Glucose within acceptable parameters. Medical Decision Making: Patient is not candidate for alteplase due to non disabling paresthesia and nihss 1 Not an IR candidate as low clinical suspicion for LVO by neurologic assessment. Recommendations: - Recommend give headache cocktail, hydration - if sxs completely resolved consider outpatient f/u with Neurology in clinic in 2-3 weeks - Thank you for allowing us to participate in the care of your patient, if there are any questions please don't hesitate to contact us Discussed plan of care with patient/hospital staff Physician: Bryanna Sultana, DO [employer] Critical care attestation.: If time is entered above; I have spent that time in minutes in the direct care of this critically ill patient, excluding procedure time. ED Disposition Clinical Impression: Migraine aura without headache Disposition: DC- TO HOME OR SELFCARE Is pt being admited?: No Condition: Stable
[2019-03-31 17:07] LABS: BUN/Creatinine Ratio 9; Blood Urea Nitrogen 8 mg/dL (7-17); Calcium 9.1 mg/dL (8.4-10.2); Hemolysis Index 5
[2019-03-31] MEDS ORDERED: BENADRYL IV ONE (18:50)
[2019-03-31 19:29] VITALS: BP 125/78
[2019-03-31 20:54] LABS: Anisocytosis 1+; Basophils % (Manual) 0 % (0.0-1.8); Eosinophils % (Manual) 0 % (0.0-4.3); Platelet Estimate Consistent w Auto; Total Cells Counted 100
== END 2019-03-31 19:50 | disposition home or self-care (01) ==
LOC: ED 16:16
DX: G43.009 Migraine without aura, not intractable, without status migrainosus (principal); F41.9 Anxiety disorder, unspecified; Z79.899 Other long term (current) drug therapy; Z88.1 Allergy status to other antibiotic agents
CPT/HCPCS: 36415; 70450; 80048; 82962; 84484; 85007; 85025; 85610; 85670; 85730; 96374; 96375; 99284; J1100; J1885

== ENCOUNTER 2019-05-12 16:55 | Emergency (ER) | payer SELFPAY ==
--- NOTE | 2019-05-12 17:36 | Event Note ---
ED Screening Note Date of service: 05/12/19 Time: 17:33 ED Screening Note: This is a 24 y.o. F. that presents to the ER with abdominal pain and back pain for 2 weeks. Patient also reports diarrhea, nausea, and vomiting intermittently since symptoms started. LMP on depovera This initial assessment/diagnostic orders/clinical plan/treatment(s) is/are subject to change based on patients health status, clinical progression and re- assessment by fellow clinical providers in the ED. Further treatment and workup at subsequent clinical providers discretion. Patient/guardian urged not to elope from the ED as their condition may be serious if not clinically assessed and managed. Initial orders include: Labs
[2019-05-12 18:07] LABS: Hematocrit 37.9 % (30.3-42.9); Hemoglobin 13.4 gm/dl (10.1-14.3); Mean Corpuscular HGB Conc 35 % (30-34); Mean Corpuscular Volume 91 fl (79-97); Platelet Count 193 K/mm3 (140-440); Red Blood Count 4.17 M/mm3 (3.65-5.03); Red Cell Distribution Width 13.2 % (13.2-15.2)
[2019-05-12 18:28] LABS: Alanine Aminotransferase 21 units/L (7-56); Albumin 3.3 g/dL (3.9-5); BUN/Creatinine Ratio 7; Blood Urea Nitrogen 7 mg/dL (7-17); Calcium 9.1 mg/dL (8.4-10.2); Hemolysis Index 9
[2019-05-12 18:57] LABS: Bilirubin,Urine NEG (Negative); Blood,Urine NEG (Negative); Calcium Oxalate Crystals,Urine 1+; Color,Urine Amber (Yellow); Mucus,Urine 3+ /HPF
[2019-05-12] MEDS ORDERED: ZOFRAN ODT PO ONE (19:44)
[2019-05-12] MEDS ORDERED: LOMOTIL PO ONE (19:44)
[2019-05-12] MEDS ORDERED: DECADRON IM ONE (19:45)
[2019-05-12] MEDS ORDERED: PEPCID PO ONE (19:45)
[2019-05-12] MEDS ORDERED: TORADOL IM ONE (19:45)
[2019-05-12 20:01] LABS: RBC Morphology Normal; Total Cells Counted 100
--- NOTE | 2019-05-12 20:07 | Emergency Department Report ---
ED General Adult HPI - General Chief complaint: Abdominal Pain Stated complaint: LOWER BACK/LEG PAIN/VOMIT Time Seen by Provider: 05/12/19 17:33 Source: patient Mode of arrival: Ambulatory Limitations: No Limitations - History of Present Illness MD Complaint: Nausea, vomiting, diarrhea and low back pain -: Sudden, week(s) (2) Location: back (lower), abdomen Radiation: extremity (right leg) Severity scale (0 -10): 7 Quality: aching, sharp Consistency: constant Improves with: none Worsens with: none Associated Symptoms: denies other symptoms, nausea/vomiting. denies: confusion, chest pain, cough, diaphoresis, fever/chills, headaches, loss of appetite, malaise, rash, seizure, shortness of breath, syncope, weakness Treatments Prior to Arrival: none - Related Data Previous Rx's Medication Instructions Recorded Last Taken Type Ibuprofen [Motrin 800 MG tab] 800 mg PO Q8HR PRN #20 tablet 12/18/16 02/11/17 Rx Naproxen [Naprosyn TAB] 500 mg PO BID #30 tablet 02/13/17 Unknown Rx medroxyPROGESTERone ACETATE 10 mg PO QDAY #10 tablet 02/13/17 Unknown Rx [Provera] traMADol [Ultram 50 MG tab] 50 mg PO Q6HR PRN #20 tablet 02/13/17 Unknown Rx medroxyPROGESTERone ACETATE 10 mg PO QDAY #10 tablet 03/31/17 Unknown Rx [Provera] Ibuprofen [Motrin 800 MG tab] 800 mg PO ONCE #30 tablet 05/26/17 Unknown Rx Hydrocortisone [Anusol-Hc] 30 gm RC BID 7 Days cream..g. 12/29/17 Unknown Rx Pantoprazole [Protonix TAB] 20 mg PO QDAY #30 tablet. 09/08/18 Unknown Rx traMADol [Ultram] 50 mg PO Q6HR PRN #10 tablet 09/08/18 Unknown Rx Diphenoxylate/Atropine [Lomotil] 1 - 2 tab PO Q4H PRN #15 tablet 05/12/19 Unknown Rx Naproxen [Naprosyn] 500 mg PO Q12H PRN #20 tablet 05/12/19 Unknown Rx Ondansetron [Zofran Odt] 4 mg PO Q6HR PRN #15 tab.rapdis 05/12/19 Unknown Rx predniSONE [Deltasone] 60 mg PO QDAY #15 tab 05/12/19 Unknown Rx tiZANidine [Zanaflex 4mg TAB] 4 mg PO Q8H PRN #15 tablet 05/12/19 Unknown Rx traMADol [Ultram] 50 mg PO Q6HR PRN #12 tablet 05/12/19 Unknown Rx Allergies Allergy/AdvReac Type Severity Reaction Status Date / Time amoxicillin Allergy Hives Verified 01/11/19 14:31 cephalexin Allergy Rash Verified 01/11/19 14:31 ED Review of Systems ROS: Stated complaint: LOWER BACK/LEG PAIN/VOMIT Other details as noted in HPI Constitutional: denies: chills, fever Eyes: denies: eye pain, eye discharge, vision change ENT: denies: ear pain, throat pain Respiratory: denies: cough, shortness of breath, wheezing Cardiovascular: denies: chest pain, palpitations Endocrine: no symptoms reported Gastrointestinal: abdominal pain, nausea, vomiting, diarrhea Genitourinary: denies: urgency, dysuria, discharge Musculoskeletal: back pain, arthralgia (right leg). denies: joint swelling Skin: denies: rash, lesions Neurological: denies: headache, weakness, paresthesias Psychiatric: denies: anxiety, depression Hematological/Lymphatic: denies: easy bleeding, easy bruising ED Past Medical Hx - Past Medical History Previous Medical History?: No Hx Psychiatric Treatment: Yes (Anxiety) Additional medical history: anxiety, Abnormal vaginal bleeding - Social History Smoking Status: Never Smoker Substance Use Type: None - Medications Home Medications: Home Medications Medication Instructions Recorded Confirmed Last Taken Type Ibuprofen [Motrin 800 MG tab] 800 mg PO Q8HR PRN #20 tablet 12/18/16 02/13/17 02/11/17 Rx Naproxen [Naprosyn TAB] 500 mg PO BID #30 tablet 02/13/17 Unknown Rx medroxyPROGESTERone ACETATE 10 mg PO QDAY #10 tablet 02/13/17 Unknown Rx [Provera] traMADol [Ultram 50 MG tab] 50 mg PO Q6HR PRN #20 tablet 02/13/17 Unknown Rx medroxyPROGESTERone ACETATE 10 mg PO QDAY #10 tablet 03/31/17 Unknown Rx [Provera] Ibuprofen [Motrin 800 MG tab] 800 mg PO ONCE #30 tablet 05/26/17 Unknown Rx Hydrocortisone [Anusol-Hc] 30 gm RC BID 7 Days cream..g. 12/29/17 Unknown Rx Pantoprazole [Protonix TAB] 20 mg PO QDAY #30 tablet. 09/08/18 Unknown Rx traMADol [Ultram] 50 mg PO Q6HR PRN #10 tablet 09/08/18 Unknown Rx Diphenoxylate/Atropine [Lomotil] 1 - 2 tab PO Q4H PRN #15 tablet 05/12/19 Unknown Rx Naproxen [Naprosyn] 500 mg PO Q12H PRN #20 tablet 05/12/19 Unknown Rx Ondansetron [Zofran Odt] 4 mg PO Q6HR PRN #15 tab.rapdis 05/12/19 Unknown Rx predniSONE [Deltasone] 60 mg PO QDAY #15 tab 05/12/19 Unknown Rx tiZANidine [Zanaflex 4mg TAB] 4 mg PO Q8H PRN #15 tablet 05/12/19 Unknown Rx traMADol [Ultram] 50 mg PO Q6HR PRN #12 tablet 05/12/19 Unknown Rx ED Physical Exam - General Limitations: No Limitations General appearance: alert, in no apparent distress - Head Head exam: Present: atraumatic, normocephalic, normal inspection - Eye Eye exam: Present: normal appearance, PERRL, EOMI. Absent: scleral icterus, conjunctival injection, nystagmus Pupils: Present: normal accommodation - ENT ENT exam: Present: normal exam, normal orophraynx, mucous membranes moist, TM's normal bilaterally, normal external ear exam - Neck Neck exam: Present: normal inspection, full ROM. Absent: tenderness, meningismus, lymphadenopathy, thyromegaly - Respiratory Respiratory exam: Present: normal lung sounds bilaterally. Absent: respiratory distress, wheezes, rales, rhonchi, stridor, chest wall tenderness, decreased breath sounds, prolonged expiratory, other - Cardiovascular Cardiovascular Exam: Present: regular rate, normal rhythm, normal heart sounds. Absent: systolic murmur, diastolic murmur, rubs, gallop - GI/Abdominal GI/Abdominal exam: Present: soft, normal bowel sounds. Absent: tenderness, guarding, rebound, hyperactive bowel sounds, hypoactive bowel sounds, organomegaly, mass - Rectal Rectal exam: Present: deferred - Extremities Exam Extremities exam: Present: normal inspection, full ROM, normal capillary refill - Back Exam Back exam: Present: normal inspection, full ROM, tenderness (palpable marcella mbosacral paraspinal musculoskeletal tenderness), muscle spasm, paraspinal tenderness - Neurological Exam Neurological exam: Present: alert, oriented X3 - Psychiatric Psychiatric exam: Present: normal affect, normal mood - Skin Skin exam: Present: warm, dry, intact, normal color. Absent: rash ED Course Vital Signs 05/12/19 17:36 Temperature 98.7 F Pulse Rate 88 Respiratory 18 Rate Blood Pressure 127/91 O2 Sat by Pulse 100 Oximetry - Reevaluation(s) Reevaluation #1: 05/12/19 20:05 This is a 24-year-old [place] female who presented to the ED with nausea and vomiting diarrhea and low back pain that radiates in the right lower leg. In the ED, patient is alert and oriented 3 and is not in distress. Lab test results were reviewed and are unremarkable except for leukopenia of 2.1 consistent with a viral syndrome. Patient was treated for nausea vomiting diarrhea as well as pain in the ED and discharged home on medications. Patient is advised to follow-up with her primary care physician in 5-7 days for reevaluation. Patient was advised to return to the ED immediately if symptoms get worse. ED Medical Decision Making - Lab Data Result diagrams: 05/12/19 17:51 05/12/19 17:51 - Medical Decision Making This is a 24-year-old [place] female who presented to the ED with nausea and vomiting diarrhea and low back pain that radiates in the right lower leg. In the ED, patient is alert and oriented 3 and is not in distress. Lab test results were reviewed and are unremarkable except for leukopenia of 2.1 consistent with a viral syndrome. Patient was treated for nausea vomiting diarrhea as well as pain in the ED and discharged home on medications. Patient is advised to follow-up with her primary care physician in 5-7 days for reevaluation. Patient was advised to return to the ED immediately if symptoms get worse. - Differential Diagnosis Viral gastroenteritis; Nausea, vomiting and diarrhea; acute sciatica Critical care attestation.: If time is entered above; I have spent that time in minutes in the direct care of this critically ill patient, excluding procedure time. ED Disposition Clinical Impression: Viral gastroenteritis, Nausea, vomiting and diarrhea Acute low back pain with right-sided sciatica Qualifiers: Back pain laterality: right Qualified Code(s): M54.41 - Lumbago with sciatica, right side Disposition: TO HOME OR SELFCARE Is pt being admited?: No Does the pt Need Aspirin: No Condition: Stable Instructions: Acute Nausea and Vomiting (ED), Acute Low Back Pain (ED), Sciatica (ED) Additional Instructions: Take medications with food, and plenty of fluids and follow-up with your primary care physician in 5-7 days for reevaluation. Return to the ED immediately if symptoms get worse. Prescriptions: predniSONE [Deltasone] 60 mg PO QDAY #15 tab Diphenoxylate/Atropine [Lomotil] 1 - 2 tab PO Q4H PRN #15 tablet PRN Reason: Diarrhea Naproxen [Naprosyn] 500 mg PO Q12H PRN #20 tablet PRN Reason: Pain , Severe (7-10) traMADol [Ultram] 50 mg PO Q6HR PRN #12 tablet PRN Reason: Pain tiZANidine [Zanaflex 4mg TAB] 4 mg PO Q8H PRN #15 tablet PRN Reason: Spasms Ondansetron [Zofran Odt] 4 mg PO Q6HR PRN #15 tab.rapdis PRN Reason: Nausea Referrals: [facility] [Outside] - 3-5 Days Time of Disposition: 20:09 Print Language: ZIMBABWEAN
[2019-05-12 20:48] VITALS: BP 116/77
== END 2019-05-12 20:45 | disposition home or self-care (01) ==
LOC: ED 16:55
DX: A08.4 Viral intestinal infection, unspecified (principal); M54.41 Lumbago with sciatica, right side; F41.9 Anxiety disorder, unspecified; Z88.1 Allergy status to other antibiotic agents
CPT/HCPCS: 36415; 80053; 81001; 83690; 84703; 85007; 85025; 96372; 99283; J1100; J1885; Q0162

== ENCOUNTER 2019-09-16 15:07 | Emergency (ER) | payer SELFPAY ==
[2019-09-16 15:28] VITALS: BP 123/66
--- NOTE | 2019-09-16 15:59 | XRay Report ---
LEFT WRIST 2 VIEWS INDICATION / CLINICAL INFORMATION: trauma, pain. COMPARISON: None available. FINDINGS: No significant skeletal abnormality. Signer Name: Sang Quintero MD FACR Signed: 09/16/2019 3:55 PM Workstation Name: [id number]
--- NOTE | 2019-09-16 19:21 | Emergency Department Report ---
ED Upper Extremity Inj HPI - General Chief Complaint: Extremity Injury, Upper Stated Complaint: LFT WRIST WORK INJURY/PAIN Time Seen by Provider: 09/16/19 19:10 Source: patient Mode of arrival: Ambulatory Limitations: No Limitations - History of Present Illness Initial Comments: 24-year-old female who presents to the emergency room with complaints of a left wrist injury that occurred today while at work. She states that she was loading some heavy boxes and dropped the boxes down and felt popping sensation in her left wrist. She denies any numbness or weakness. She denies ever injuring this wrist in the past. She states she has a past medical history of a "leaky valve." She states she has allergy to amoxicillin and cephalexin. She states that she is on Depo-Provera for control. - Related Data Previous Rx's Medication Instructions Recorded Last Taken Type Ibuprofen [Motrin 800 MG tab] 800 mg PO Q8HR PRN #20 tablet 12/18/16 02/11/17 Rx Naproxen [Naprosyn TAB] 500 mg PO BID #30 tablet 02/13/17 Unknown Rx medroxyPROGESTERone ACETATE 10 mg PO QDAY #10 tablet 02/13/17 Unknown Rx [Provera] traMADoL [Ultram 50 MG tab] 50 mg PO Q6HR PRN #20 tablet 02/13/17 Unknown Rx medroxyPROGESTERone ACETATE 10 mg PO QDAY #10 tablet 03/31/17 Unknown Rx [Provera] Ibuprofen [Motrin 800 MG tab] 800 mg PO ONCE #30 tablet 05/26/17 Unknown Rx Hydrocortisone [Anusol-Hc] 30 gm RC BID 7 Days cream..g. 12/29/17 Unknown Rx Pantoprazole [Protonix TAB] 20 mg PO QDAY #30 tablet. 09/08/18 Unknown Rx traMADoL [Ultram] 50 mg PO Q6HR PRN #10 tablet 09/08/18 Unknown Rx Diphenoxylate/Atropine [Lomotil] 1 - 2 tab PO Q4H PRN #15 tablet 05/12/19 Unknown Rx Naproxen [Naprosyn] 500 mg PO Q12H PRN #20 tablet 05/12/19 Unknown Rx Ondansetron [Zofran Odt] 4 mg PO Q6HR PRN #15 tab.rapdis 05/12/19 Unknown Rx predniSONE [Deltasone] 60 mg PO QDAY #15 tab 05/12/19 Unknown Rx tiZANidine [Zanaflex 4mg TAB] 4 mg PO Q8H PRN #15 tablet 05/12/19 Unknown Rx traMADoL [Ultram] 50 mg PO Q6HR PRN #12 tablet 05/12/19 Unknown Rx Ibuprofen [Motrin 600 MG tab] 600 mg PO Q8H PRN #14 tablet 09/16/19 Unknown Rx Allergies Allergy/AdvReac Type Severity Reaction Status Date / Time amoxicillin Allergy Hives Verified 01/11/19 14:31 cephalexin Allergy Rash Verified 01/11/19 14:31 ED Review of Systems ROS: Stated complaint: LFT WRIST WORK INJURY/PAIN Other details as noted in HPI Comment: All other systems reviewed and negative ED Past Medical Hx - Past Medical History Hx Psychiatric Treatment: Yes (Anxiety) Additional medical history: anxiety, Abnormal vaginal bleeding - Surgical History Past Surgical History?: No - Social History Smoking Status: Current Every Day Smoker Substance Use Type: None - Medications Home Medications: Home Medications Medication Instructions Recorded Confirmed Last Taken Type Ibuprofen [Motrin 800 MG tab] 800 mg PO Q8HR PRN #20 tablet 12/18/16 02/13/17 02/11/17 Rx Naproxen [Naprosyn TAB] 500 mg PO BID #30 tablet 02/13/17 Unknown Rx medroxyPROGESTERone ACETATE 10 mg PO QDAY #10 tablet 02/13/17 Unknown Rx [Provera] traMADoL [Ultram 50 MG tab] 50 mg PO Q6HR PRN #20 tablet 02/13/17 Unknown Rx medroxyPROGESTERone ACETATE 10 mg PO QDAY #10 tablet 03/31/17 Unknown Rx [Provera] Ibuprofen [Motrin 800 MG tab] 800 mg PO ONCE #30 tablet 05/26/17 Unknown Rx Hydrocortisone [Anusol-Hc] 30 gm RC BID 7 Days cream..g. 12/29/17 Unknown Rx Pantoprazole [Protonix TAB] 20 mg PO QDAY #30 tablet. 09/08/18 Unknown Rx traMADoL [Ultram] 50 mg PO Q6HR PRN #10 tablet 09/08/18 Unknown Rx Diphenoxylate/Atropine [Lomotil] 1 - 2 tab PO Q4H PRN #15 tablet 05/12/19 Unknown Rx Naproxen [Naprosyn] 500 mg PO Q12H PRN #20 tablet 05/12/19 Unknown Rx Ondansetron [Zofran Odt] 4 mg PO Q6HR PRN #15 tab.rapdis 05/12/19 Unknown Rx predniSONE [Deltasone] 60 mg PO QDAY #15 tab 05/12/19 Unknown Rx tiZANidine [Zanaflex 4mg TAB] 4 mg PO Q8H PRN #15 tablet 05/12/19 Unknown Rx traMADoL [Ultram] 50 mg PO Q6HR PRN #12 tablet 05/12/19 Unknown Rx Ibuprofen [Motrin 600 MG tab] 600 mg PO Q8H PRN #14 tablet 09/16/19 Unknown Rx ED Physical Exam - General Limitations: No Limitations General appearance: alert, in no apparent distress - Head Head exam: Present: atraumatic, normocephalic - Eye Eye exam: Present: normal appearance - ENT ENT exam: Present: mucous membranes moist - Extremities Exam Extremities exam: Present: other (no bony TTP of the left elbow, forearm, wrist, hand or digits, no edema to the LUE, FROM of the left wrist with discomfort upon internal rotation, no snuffbox tenderness, no deformity, no ecchymosis, neurovascularly intact) - Neurological Exam Neurological exam: Present: alert, oriented X3 - Psychiatric Psychiatric exam: Present: normal affect, normal mood - Skin Skin exam: Present: warm, dry, intact ED Course Vital Signs 09/16/19 15:27 Temperature 98.3 F Pulse Rate 86 Respiratory 16 Rate Blood Pressure 123/66 O2 Sat by Pulse 100 Oximetry ED Medical Decision Making - Radiology Data Radiology results: report reviewed LEFT WRIST 2 VIEWS INDICATION / CLINICAL INFORMATION: trauma, pain. COMPARISON: None available. FINDINGS: No significant skeletal abnormality. Signer Name: Sang Quintero MD FACR Signed: 09/16/2019 3:55 PM Workstation Name: [id number] Transcribed By: MS Dictated By: Sang Quintero MD Electronically Authenticated By: Sang Quintero MD Signed Date/Time: 09/16/19 5923 - Medical Decision Making 24-year-old female who presents to the emergency room with complaints of a left wrist injury that occurred today while at work. She states that she was loading some heavy boxes and dropped the boxes down and felt popping sensation in her left wrist. She denies any numbness or weakness. She denies ever injuring this wrist in the past. She states she has a past medical history of a "leaky valve." She states she has allergy to amoxicillin and cephalexin. She states that she is on Depo-Provera for control. vitals are normal. on exam: no bony TTP of the left elbow, forearm, wrist, hand or digits, no edema to the LUE, FROM of the left wrist with discomfort upon internal rotation, no snuffbox tenderness, no deformity, no ecchymosis, neurovascularly intact. XR of the left wrist with no acute process. examination consistent with wrist sprain. No snuffbox tenderness, no concern for carpal fracture. Presented for ibuprofen to take as needed for pain relief. Patient placed in Peter bandage and neurovascularly intact. advised pt Please wear Peter bandage as needed. Do not wear too tightly. Please remove at night. May use rest, ice for 15 minutes at a time. Follow up with orthopedic doctor if symptoms are not improving. Take medication as prescribed as needed. Return to the emergency room for any new or worsening symptoms. - Differential Diagnosis strain, sprain, fx, dislocation Critical care attestation.: If time is entered above; I have spent that time in minutes in the direct care of this critically ill patient, excluding procedure time. ED Disposition Clinical Impression: Left wrist sprain Qualifiers: Encounter type: initial encounter Qualified Code(s): S63.502A - Unspecified sprain of left wrist, initial encounter Disposition: - TO HOME OR SELFCARE Is pt being admited?: No Does the pt Need Aspirin: No Condition: Stable Instructions: Wrist Sprain (ED) Additional Instructions: Please wear Peter bandage as needed. Do not wear too tightly. Please remove at night. May use rest, ice for 15 minutes at a time. Follow up with orthopedic doctor if symptoms are not improving. Take medication as prescribed as needed. Return to the emergency room for any new or worsening symptoms. Prescriptions: Ibuprofen [Motrin 600 MG tab] 600 mg PO Q8H PRN #14 tablet PRN Reason: Pain Referrals: BRITTA KEN MD [Staff Physician] - 3-5 Days [facility] [Provider Group] - 3-5 Days Time of Disposition: 19:20 Print Language: ARMENIAN
== END 2019-09-16 19:48 | disposition home or self-care (01) ==
LOC: ED 15:07
DX: S63.502A Unspecified sprain of left wrist, initial encounter (principal); F41.9 Anxiety disorder, unspecified; F17.200 Nicotine dependence, unspecified, uncomplicated; Z88.1 Allergy status to other antibiotic agents; Z79.899 Other long term (current) drug therapy; X50.0XXA Overexertion from strenuous movement or load, initial encounter; Y93.89 Activity, other specified; Y92.89 Other specified places as the place of occurrence of the external cause; Y99.8 Other external cause status

== ENCOUNTER 2020-09-13 12:09 | Emergency (ER) | payer SELFPAY ==
[2020-09-13 12:23] VITALS: BP 131/81
== END 2020-09-13 12:35 | disposition left against medical advice (07) ==
LOC: ED 12:09
DX: R31.9 Hematuria, unspecified (principal); Z53.21 Procedure and treatment not carried out due to patient leaving prior to being seen by health care provider